=== PATIENT | female | born 1960 | race Caucasian/White ===

== ENCOUNTER 2020-08-19 07:47 | Outpatient (CLI) | payer OTHER, SELFPAY ==
--- NOTE | 2020-08-19 07:54 | MM_ITS ---
WS: [id number] Exam: [id number] Date/Time of Exam: 08/19/2020 8:11 AM Reason For Exam: SCREENING VIEWS: MLO and CC views both breasts. Comparison made with prior exam of 07/11/2017 and 07/15/2018. Findings: There was no sign of mass, architectural distortion or suspicious calcification in either breast. He terogeneously dense MM/[place] [id number] Impression: BI-RADS: 2-Benign FOLLOW-UP: 1 Year Follow-up This mammogram was also analyzed by the Computer Aided Detection System R2 Imag e [employer] Interface Developer.
== END 2020-08-19 07:48 | disposition home or self-care (01) ==
LOC: RADSHAW 07:50
PROVIDERS: Family Provider General Practice; PCP General Practice; Visit Provider General Practice
DX: Z12.31 Encounter for screening mammogram for malignant neoplasm of breast (principal)
CPT/HCPCS: 77067

== ENCOUNTER 2021-10-27 07:46 | Outpatient (CLI) | payer OTHER, SELFPAY ==
--- NOTE | 2021-10-27 07:58 | MM_ITS ---
WS: [id number] SCREENING 3D TOMOSYNTHESIS DIGITAL MAMMOGRAM WITH CAD HISTORY: SCREENING COMPARISON: 08/19/2020, 07/30/2019 and 07/15/2018 Bilateral CC and MLO views submitted. Computer aided detection analyzed. Breast composition: The breasts are heterogeneously dense, which may obscure small masses. Bilateral calcifications. Tomosynthesis view of the RIGHT CC needs to be repeated. This can be done at the same time as compression views in the upper outer quadrant of the RIGHT breast. This is the area of archi tectural distortion in the superior mid RIGHT breast. There are additional calcifications in the line ar distribution also noted in the superior RIGHT breast. MM/[place] [id number] IMPRESSION: BI-RADS: 0-Incomplete: Need additional imaging evaluation FOLLOW UP: Need Additional Imaging 1. Repeat RIGHT CC tomosynthesis. 2. Spot compression views superior RIGHT breast along with magnification views of the adjacent calcifications. After the tomosynthesis is repeated the area of architectural distortion in the cc view will need additional spot compressions . The calcifications also need to be reevaluated for location on the RIGHT CC t omosynthesis.
== END 2021-10-27 07:47 | disposition home or self-care (01) ==
LOC: RADSHAW 07:48
PROVIDERS: PCP General Practice; Visit Provider General Practice
DX: Z12.31 Encounter for screening mammogram for malignant neoplasm of breast (principal)
CPT/HCPCS: 77063; 77067

== ENCOUNTER 2021-11-17 07:28 | Outpatient (CLI) | payer OTHER, SELFPAY ==
--- NOTE | 2021-11-17 07:40 | MM_ITS ---
WS: [id number] ADDITIONAL VIEWS RIGHT MAMMOGRAM, 3-D. HISTORY: ABNORMAL MAMMOGRAM/CALCIFICATIONS COMPARISON: 10/27/2021, 08/19/2020 and 07/30/2019 RIGHT MAMMOGRAM: Spot compression views and true ML. Magnification views RIGHT upper outer quadrant. Calcifications in the central breast persists. These calcifications are very round and not contiguous . These may be vascular calcifications. Better seen on recent imaging studies due to loss of fibrogla ndular tissue. There is no persistent architectural distortion. MM/[place] [id number] IMPRESSION: BI-RADS: 3-Probably Benign FOLLOW UP: 6 Month Follow-up Recommend diagnostic RIGHT mammogram follow-up in 6 months with magnification v iews of the calcifications in the central breast.
== END 2021-11-17 07:29 | disposition home or self-care (01) ==
LOC: RAD 07:29
PROVIDERS: PCP General Practice; Visit Provider Family Medicine Adult Medicine
DX: R92.8 Other abnormal and inconclusive findings on diagnostic imaging of breast (principal); R92.1 Mammographic calcification found on diagnostic imaging of breast
CPT/HCPCS: 77061

== ENCOUNTER → 2022-09-21 07:31 | Outpatient (BNVA) | payer OTHER, SELFPAY | PROVIDERS: PCP Family Medicine; Visit Provider Family Medicine | DX: Z00.00 Encounter for general adult medical examination without abnormal findings (principal); Z76.89 Persons encountering health services in other specified circumstances; M46.1 Sacroiliitis, not elsewhere classified; R92.0 Mammographic microcalcification found on diagnostic imaging of breast | CPT/HCPCS: 80053; 80061; 83036; 85025 ==

== ENCOUNTER 2022-11-24 07:18 | Outpatient (CLI) | payer OTHER, SELFPAY ==
--- NOTE | 2022-11-24 07:35 | MM_ITS ---
WS: [id number] DIAGNOSTIC BILATERAL DIGITAL BREAST TOMOSYNTHESIS MAMMOGRAPHY WITH CAD HISTORY: Follow-up calcifications RIGHT breast. COMPARISON: 11/17/2021, 10/27/2021, 08/19/2020 TECHNIQUE: Bilateral craniocaudad, mediolateral oblique, and mediolateral views are submitted with to mosynthesis and SM. Magnification views RIGHT breast. Computer aided detection utilized. Breast composition: The breasts are heterogeneously dense, which may obscure small masses. No signifi cant interval change in the scattered calcifications in the upper outer quadrant of the RIGHT breast. There are additional bilateral benign calcifications also. MM/[place] [id number] IMPRESSION: BI-RADS: 3-Probably Benign FOLLOW UP: 1 Year Follow-up Recommend magnification views of the probable benign calcifications in the uppe r-outer quadrant of the RIGHT breast in one year.
== END 2022-11-24 07:19 | disposition home or self-care (01) ==
LOC: RAD 07:20
PROVIDERS: PCP Family Medicine; Visit Provider Family Medicine
DX: R92.0 Mammographic microcalcification found on diagnostic imaging of breast (principal)
CPT/HCPCS: 77062; G0279

== ENCOUNTER → 2023-03-21 08:05 | Outpatient (BNVA) | payer MEDICARE, SELFPAY | PROVIDERS: PCP Family Medicine; Visit Provider Family Medicine | DX: Z12.11 Encounter for screening for malignant neoplasm of colon (principal); E78.1 Pure hyperglyceridemia; R73.09 Other abnormal glucose | CPT/HCPCS: 80048; 80061; 83036 ==

== ENCOUNTER 2023-08-16 05:42 | Day surgery (SDC) | payer MEDICARE, SELFPAY ==
[2023-08-16 06:10] VITALS: BP 178/80; PULSE 81; RESP 16; TEMP 36.1; O2SAT 95; BMI 31.0
[2023-08-16] MEDS: sodium chloride 0.9% 1,000 ML 30 ML IV (06:18)
--- NOTE | 2023-08-16 06:43 | P.ANESASSM_ITS ---
Pre-Anesthetic Assessment Height/Weight: Height 1.52 m Weight 72.121 kg Temp Pulse Resp BP Pulse Ox O2 Del Method 97.0 F L 81 16 178/80 95 Room Air 08/16/23 06:10 08/16/23 06:10 08/16/23 06:10 08/16/23 06:10 08/16/23 06:10 08/16/23 06:10 Preop Diagnosis: screening Operation Date: 08/16/23 07:00 Proposed Procedures p Colonoscopy 84889,Z12.11(Not Applicable) - Brian Sewell MD Was Beta Juan Diego taken within 24 hours: N/A Was Clonidine taken within 24 hours: N/A Last intake: Intake Last Liquid Date 08/15/23 Last Liquid Time 21:00 Last Solid Date 08/14/23 Last Solid Time 18:30 Social No alcohol and No tobacco Exam alert and oriented x 3 Airway Submandibular: within normal limits Cervical ROM: within normal limits Mallampati: Class II Dentition: false History/ROS No significant history except as noted Pulmonary None reported CV/HEM None reported None reported Hepatic None reported GI None reported Metabolic None reported Musc/skel None reported Neuropsych Anxiety Anesthetic Plan ASA status: 2 Anesthesia: MAC Risk of > 500 ml blood loss (7ml/kg in children): No Medications/Allergies Home Medications Medication Instructions Recorded Confirmed Last Taken Type ibuprofen 800 mg tablet 800 mg PO Q8H PRN arthritis pain 09/21/22 08/16/23 08/14/23 Rx #60 tabs calcium carbonate 600 mg-vitamin 1 cap PO DAILY 03/21/23 08/16/23 08/14/23 History D3 12.5 mcg (500 unit) capsule (Calcium 600 with Vitamin D3) magnesium 200 mg tablet 200 mg PO DAILY 03/21/23 08/16/23 08/14/23 History omega 3-mzj-emy-fish oil 1,000 mg 1 cap PO DAILY 03/21/23 08/16/23 08/13/23 History (120 mg-180 mg) capsule (Fish Oil) sertraline 25 mg tablet 25 mg PO DAILY #30 tabs 08/06/23 08/16/23 08/15/23 Rx Allergies Allergy/AdvReac Type Severity Reaction Status Date / Time No Known Allergies Allergy Verified 08/16/23 06:07 Current Medications Generic Name Dose Route Start Last Admin Trade Name Freq PRN Reason Stop Dose Admin Sodium Chloride 1,000 mls @ 30 mls/hr 08/16/23 06:00 08/16/23 06:18 Sodium Chloride 0.9% IV 30 mls/hr .Q24H DAISHA Administration PFSH Anesthesia Medical History (Updated 08/06/23 @ 08:23 by Nuris Peralta MD) Abnormal mammogram with microcalcification Surgical History (Updated 09/21/22 @ 07:05 by Nuris Peralta MD) History of bunionectomy Family History (Updated 09/21/22 @ 07:22 by Nuris Peralta MD) Father Cancer lung cancer (smoker) Mother Cancer brain tumor Sister Diabetes Denies family history of CAD (coronary artery disease) Hypertension Stroke Social History (Updated 09/21/22 @ 07:25 by Nuris Peralta MD) Smoking and tobacco/nicotine status: former use of tobacco/nicotine Quit status (tobacco/nicotine): has quit using Year quit tobacco: 2001 Alcohol intake: never Substance/Drug Use: never Household members: spouse and other Details: mother Marital status: Number of children: 0 Current occupational status: retired Current occupation: [employer] 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
--- NOTE | 2023-08-16 06:49 | P.HP_ITS ---
Same Day Surgery H&P Indication for Procedure/HPI DATE OF PROCEDURE: August 16, 2023 CHIEF COMPLAINT/INDICATIONFOR SURGICAL PROCEDURE: Need for screening colonoscopy PREOP DIAGNOSIS: screening PLANNED PROCEDURE: Operation Date: 08/16/23 07:00 Proposed Procedures p Colonoscopy 27116,Z12.11(Not Applicable) - Brian Sewell MD Medications/Allergies* Home Medications Medication Instructions Recorded Confirmed Type calcium carbonate 600 mg-vitamin 1 cap PO DAILY 03/21/23 08/16/23 History D3 12.5 mcg (500 unit) capsule (Calcium 600 with Vitamin D3) magnesium 200 mg tablet 200 mg PO DAILY 03/21/23 08/16/23 History omega 4-dmu-ugy-fish oil 1,000 mg 1 cap PO DAILY 03/21/23 08/16/23 History (120 mg-180 mg) capsule (Fish Oil) Allergies/Adverse Reactions Allergy/AdvReac Type Severity Reaction Status Date / Time No Known Allergies Allergy Verified 08/16/23 06:07 Current Medications: Generic Name Dose Route Start Last Admin Trade Name Freq PRN Reason Stop Dose Admin Sodium Chloride 1,000 mls @ 30 mls/hr 08/16/23 06:00 08/16/23 06:18 Sodium Chloride 0.9% IV 30 mls/hr .Q24H DAISHA Administration Pertinent History/Comorbid Conditions* Medical History (Updated 08/06/23 @ 08:23 by Nuris Peralta MD) Abnormal mammogram with microcalcification Surgical History (Updated 09/21/22 @ 07:05 by Nuris Peralta MD) History of bunionectomy Family History (Updated 09/21/22 @ 07:22 by Nuris Peralta MD) Father Diabetes Sister Cancer Father lung cancer (smoker) Mother brain tumor Denies family history of CAD (coronary artery disease) Hypertension Stroke Social History Smoking and tobacco/nicotine status: former use of tobacco/nicotine Quit status (tobacco/nicotine): has quit using Year quit tobacco: 2001 Alcohol intake: never Substance/Drug Use: never Household members: spouse and other Details: mother Marital status: Number of children: 0 Current occupational status: retired Current occupation: [employer] - [employer] 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 Nose : Mucous membranes are without erythema. Lungs : Equal chest rise bilaterally, no use of accessory muscles, trachea is midline. CV : Rate and rhythm are normal. Abdomen : Soft, ND, NT, no g/r/m Extremities : No edema. Upper extremities are normal bilaterally. Back : non-tender to palpation, no CVA tenderness. Recommendations Surgery/Procedure today Other Plans: After a complete history, physical examination and review of all available clinical data. I have offer screening colonoscopy as indicated by the current guidelines. I have discussed all the risks and benefits of the colonoscopy. Including, the risk of perforation requiring surgical intervention, rectal bleeding, incomplete colonoscopy requiring repeat procedure in 1 year, missed polyps, need for additional procedures. Patient shows understanding and wishes to proceed. Coding Level of Care Code Acute Code for Ty Robles
[2023-08-16 07:39] VITALS: BP 137/75; PULSE 89; RESP 16; TEMP 36.3; O2SAT 98
[2023-08-16 07:51] VITALS: BP 151/83; PULSE 88; RESP 16; O2SAT 98
--- NOTE | 2023-08-16 07:55 | ANE.PACU2 ---
Inpatient post-anesthesia follow up: Airway intact: Yes Vital signs: Temperature 97.4 F Pulse Rate 88 Respiratory Rate 16 Blood Pressure 177/95 Pulse Oximetry 98 Oxygen Delivery Me thod Room Air Oxygen Flow Rate Fraction of Inspir ed Oxygen Hydration adequate: Yes Nausea and vomiting: No Pain level: 1 Mental status: Baseline
[2023-08-16 08:01] VITALS: BP 177/95; PULSE 88; RESP 16; O2SAT 98
== END 2023-08-16 08:17 | disposition home or self-care (01) ==
PROVIDERS: PCP Family Medicine; Visit Provider Surgery
PROC: 0DJD8ZZ Inspection of Lower Intestinal Tract, Via Natural or Artificial Opening Endoscopic (ICD-10-PCS; CPT 45378; principal; 2023-08-16 07:00)
DX: Z12.11 Encounter for screening for malignant neoplasm of colon (principal); K64.8 Other hemorrhoids; K62.1 Rectal polyp; Z87.891 Personal history of nicotine dependence
CPT/HCPCS: 45380; 88305; J2704; J3490; J7030

== ENCOUNTER 2023-12-10 09:00 | Outpatient (CLI) | payer MEDICARE, SELFPAY ==
--- NOTE | 2023-12-10 09:30 | MM_ITS ---
WS: [id number] DIAGNOSTIC BILATERAL DIGITAL BREAST TOMOSYNTHESIS MAMMOGRAPHY WITH CAD HISTORY: abnormal mammogram COMPARISON: 11/24/2022, 11/17/2021, 10/27/2021 and 08/19/2020 TECHNIQUE: Bilateral craniocaudad, mediolateral oblique, and mediolateral views are submitted with to mosynthesis and SM. Magnification views RIGHT breast. Computer aided detection utilized. Breast composition: The breasts are heterogeneously dense, which may obscure small masses. Benign maryjo cifications in each breast. The indeterminate calcifications in the upper outer quadrant of the RIGHT breast are unchanged. No mass. IMPRESSION: MM/[place] [id number] BI-RADS: 2-Benign FOLLOW UP: 1 Year Follow-up
== END 2023-12-10 09:01 | disposition home or self-care (01) ==
LOC: RAD 09:00
PROVIDERS: PCP Family Medicine; Visit Provider Family Medicine
DX: R92.0 Mammographic microcalcification found on diagnostic imaging of breast (principal); R92.30 Dense breasts, unspecified
CPT/HCPCS: 77062; G0279

== ENCOUNTER → 2024-03-07 08:11 | Outpatient (BNVA) | payer MEDICARE, SELFPAY | PROVIDERS: PCP Family Medicine; Visit Provider Family Medicine | DX: E78.1 Pure hyperglyceridemia (principal) | CPT/HCPCS: 80048; 80061 ==

== ENCOUNTER → 2024-11-05 09:16 | Outpatient (BNVA) | payer MEDICARE, SELFPAY | PROVIDERS: PCP Family Medicine; Visit Provider Family Medicine | DX: Z00.00 Encounter for general adult medical examination without abnormal findings (principal); E78.1 Pure hyperglyceridemia | CPT/HCPCS: 80053; 80061 ==

== ENCOUNTER 2024-12-09 07:42 | Outpatient (CLI) | payer MEDICARE, SELFPAY ==
--- NOTE | 2024-12-09 08:00 | MM_ITS ---
WS: [id number] BILATERAL 3D TOMOSYNTHESIS DIGITAL SCREENING MAMMOGRAPHY WITH CAD CLINICAL INFORMATION: breast cancer screening HISTORY: Screening mammogram. No current complaints. COMPARISON: 2023 TECHNIQUE: Bilateral CC and MLO views. FINDINGS: The breasts are composed of heterogeneous fibroglandular density tissue, which can limit the detection of small underlying mass lesions. No suspicious mass, asymmetry, calcifications, or architectural distortion. No evidence of malignancy. Incidental punctate and lucent centered calcifications. MM/MM [facility] tomosynthesis [id number] IMPRESSION: DENSITY: The breasts are heterogeneously dense, which may obscure small masses. BI-RADS: 2 - Benign FOLLOW UP: 1 Year Follow-up Recommend return to annual screening mammography.
--- NOTE | 2024-12-09 13:30 | XR_ITS ---
WS: [id number] SCREENING DEXA SCAN [employer] CLINICAL INFORMATION: routine screening for osteoporosis FINDINGS: The L1-L4 bone mineral density measures 0.931 g/cm2. This corresponds to a T score score of -2.1 and Z score of -0.7. Left femoral neck bone mineral density measures 0.938 g/cm2. This corresponds to a T score of -0.6 and Z score of 0.5. Right femoral neck bone mineral density measures 0.925 g/cm2. This corresponds to a T score -0.7of and Z score of 0.4. Mean femoral neck bone mineral density measures 0.932 g/cm2. This corresponds to a T score of -0.6 and Z score of 0.5. XR/XR DEXA axial skeleton* [id number] IMPRESSION: Osteopenia lumbar spine. Normal bone mineralization femoral necks. Patient's FRAX calculated 10 year probability for major osteoporotic fracture i s 10.8% and osteoporotic hip fracture is 1.7%.
== END 2024-12-09 07:43 | disposition home or self-care (01) ==
PROVIDERS: PCP Family Medicine; Visit Provider Family Medicine
DX: Z12.31 Encounter for screening mammogram for malignant neoplasm of breast (principal); Z78.0 Asymptomatic menopausal state; R92.333 Mammographic heterogeneous density, bilateral breasts; R92.1 Mammographic calcification found on diagnostic imaging of breast; M85.88 Other specified disorders of bone density and structure, other site
CPT/HCPCS: 77063; 77067; 77080